=== PATIENT | female | born 1960 | race Caucasian/White ===

== ENCOUNTER → 2017-05-28 | Outpatient (CLI) | payer OTHER ==
--- NOTE | 2017-05-28 11:36 | RAD ---
MRI Thoracic Spine without contrast History: Back pain with bilateral leg radiculopathy greater on the left, shoulder numbness Technique: Multiplanar, multi sequential noncontrast MR imaging was performed of the thoracic spine. Contrast: None Comparison: None Findings: Thoracic vertebral body stature is adequate. AP alignment is mostly preserved, negligible anterior spondylolisthesis T2-3. Thoracic cord caliber is within limits without significant focal signal abnormality. There is no significant marrow edema. There are hemangiomas of T8, T5, T10, T12. There is negligible posterior protrusion T7-8. There is also negligible posterior protrusion T11-12. There is no significant thoracic spinal stenosis. Thoracic neural foramina are not significantly narrowed, mild posterior narrowing by facet on the right at T5-T6. There is kzdh-uo-hrhlmyat degenerative disc disease T11-12, minimally at other levels. As seen on the localizer, there are posterior bulges at C5-6 and C6-7. Impression: 1. There is no significant thoracic spinal stenosis or neural foramina compromise. There is tint-ii-nxxypxjo degenerative disc disease T11-12, minimally at other levels. Electronically signed by: Herrera Garcia MD (05/28/2017 11:32 AM) [id number]
--- NOTE | 2017-05-28 12:19 | RAD ---
MRI Lumbar Spine without contrast History: Back pain with bilateral leg radiculopathy greater on the left Technique: Multiplanar, multi sequential noncontrast MR imaging was performed of the lumbar spine. Contrast: None Comparison: December 24, 2007 Findings: Lumbar vertebral body stature is maintained. There is more advanced degenerative disc disease L5-S1 as seen previously. There is again minimal posterior subluxation L5 relative S1. Conus terminates at L1. There is degenerative endplate change L5-S1. There is no significant marrow edema. L2-L3: Spinal canal and neural foramina are adequate. L3-L4: Spinal canal and neural foramina are adequate. There is gtme-kh-cdszbmlb facet hypertrophic change and mild buckling of the ligamentum flavum. L4-L5: There is mild/moderate buckling of the ligamentum flavum and mild facet hypertrophic change. There is left posterior annular tear. Neural foramina and spinal canal are adequate. L5-S1: There is shallow extrusion extending below the intervertebral disc space as seen previously without significant impingement of the descending S1 nerve roots. Spinal canal is overall adequate. There is also shallow protrusion in the right neural foramen. There is jtwl-zo-caezptjj narrowing of the right neural foramen with contact exiting right L5 nerve root. Left neural foramen is overall adequate. Impression: 1. There is more advanced degenerative disc disease L5-S1. There is again minimal posterior subluxation L5 relative to S1. There is qpgq-tw-gtwbwddk narrowing of the right L5-S1 neural foramen in part by protrusion with contact exiting right L5 nerve root. Electronically signed by: Herrera Garcia MD (05/28/2017 12:16 PM) [facility]
== END | disposition home or self-care (01) ==
LOC: MRI 09:52
PROVIDERS: ATTEND Family Medicine
DX: M51.16 Intervertebral disc disorders with radiculopathy, lumbar region (principal); M51.17 Intervertebral disc disorders with radiculopathy, lumbosacral region; M51.34 Other intervertebral disc degeneration, thoracic region; R20.0 Anesthesia of skin
CPT/HCPCS: 72146; 72148

== ENCOUNTER → 2018-06-26 | Outpatient (CLI) | payer OTHER ==
--- NOTE | 2018-06-26 13:25 | RAD ---
MR of the left wrist Indication: Pain on the thumb side for 6 months. No known injury. Comparison: None are available Technique: Standard multiplanar sequences are obtained. FINDINGS: Artifact: Moderate motion degradation. Triangular fibrocartilage: Although somewhat limited by the motion, there appears to be a full-thickness tear of the central TFC disc measuring 3 mm wide. Distal radioulnar alignment: Intact, wrist is in extreme supination. Extensor carpi ulnaris tendon: Mild tendinosis signal and deformity, subluxed medially and flattened over the ulnar styloid. Other extensor compartments: Mild fluid surrounding the abductor pollicis longus and extensor pollicis brevis tendons. There is also mild intratendinous signal compatible with mild partial interstitial tearing. Flexor tendons: Intact Median nerve: Unremarkable Scapholunate ligament: The posterior band is poorly defined with increased signal. The anterior band and central aspect are also somewhat poorly defined. Lunotriquetral ligament: No evidence of a tear. Carpal bone alignment: Within normal limits. First carpometacarpal joint: Mild thickening and ill-definition of the anterior oblique ligament. Fluid: No significant effusion. Joints: No advanced DJD. Bones: Intraosseous cyst of the lunate. Soft tissues: Soft tissue edema about the lateral wrist. IMPRESSION: 1. First extensor compartment (de Quervain's) tenosynovitis. Mild partial interstitial tearing of the tendons. 2. Poor definition of the scapholunate ligament, consider sprain or partial tear. No definite through and through rupture. 3. Apparent full-thickness tear of the TFC disc. 4. Mild extensor carpi ulnaris tendinosis with medial subluxation. 5. Moderate motion degradation. Electronically signed by: William Sanchez MD (06/26/2018 1:21 PM) [facility]
== END | disposition home or self-care (01) ==
LOC: MRI 10:14
PROVIDERS: ATTEND Family Medicine
DX: S60.212A Contusion of left wrist, initial encounter (principal); S63.092A Other subluxation of left wrist and hand, initial encounter; M65.842 Other synovitis and tenosynovitis, left hand; Z90.710 Acquired absence of both cervix and uterus; X58.XXXA Exposure to other specified factors, initial encounter; Y93.89 Activity, other specified; Y92.89 Other specified places as the place of occurrence of the external cause; Y99.8 Other external cause status
CPT/HCPCS: 73221

== ENCOUNTER → 2019-10-27 | Outpatient (CLI) | payer OTHER ==
--- NOTE | 2019-10-27 18:52 | RAD ---
MRI study of the right knee without contrast Clinical indications: Patellar abnormality. TECHNIQUE: Noncontrast MRI sequences of the right knee were performed in all 3 planes. FINDINGS: The anterior and posterior cruciate ligaments are intact. The quadriceps and patellar tendons are intact. No articular surface tear of the medial or lateral meniscus is seen. Mild stress reaction bone marrow edema underneath the tibial spines is seen. No focal osteochondral abnormality of the medial or lateral tibiofemoral joint compartments is seen. No fracture or marrow infiltrative process is seen. There is mild lateral subluxation of the patella. The trochlear groove to tibial tubercle distance is 13 mm which is normal. There is moderate chondromalacia patellae. There is mild chondromalacia of the trochlea. There is a focus of stress reaction bone marrow edema of the lateral superior aspect of the trochlea just superior to the superior end of the articular cartilage. The medial and lateral retinacular ligaments are intact. Tiny nondistended Wray's cyst is seen. No significant knee joint effusion is seen. No loose body is seen. No muscle edema is evident. 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 Mild lateral subluxation of the patella. No ligament or tendon or meniscal tear. Electronically signed by: Abdiel Christianson MD (10/27/2019 3:55 PM) [facility]
== END | disposition home or self-care (01) ==
LOC: MRI 12:30
PROVIDERS: ATTEND Family Medicine
DX: S83.011A Lateral subluxation of right patella, initial encounter (principal); M71.21 Synovial cyst of popliteal space [Baker], right knee; X58.XXXA Exposure to other specified factors, initial encounter; Y93.89 Activity, other specified; Y92.89 Other specified places as the place of occurrence of the external cause; Y99.8 Other external cause status
CPT/HCPCS: 73721

== ENCOUNTER → 2021-01-19 | Day surgery (SDC) | payer OTHER ==
[~2021-01-19] MED LIST: AMLO5TAB4 PO; ASPI81TA59 PO; CRESTOR40 MG PO; ESOM20CA PO; IV RINGERS,LACTATED 1000ML 1,000 ML IV ONE; LEXAPRO20 MG PO; PROPOFOL 10 MG/ML (20ML) VIAL. IV ONE
[2021-01-19 10:04] VITALS: BP 122/77
--- NOTE | 2021-01-19 12:27 | HP ---
ADMIT DATE: 01/19/2021 HISTORY: A 60-year-old female with past medical history significant for hypertension as well as gastroesophageal reflux disease, hyperlipidemia, seen for a screening colon exam. Bowel habits are regular without diarrhea or constipation. There has been no melena or hematochezia. Weight and appetite are stable. FAMILY HISTORY: Noncontributory. She has, otherwise, no additional complaints. PAST MEDICAL HISTORY: Hypertension, hyperlipidemia, gastroesophageal reflux disease. ALLERGIES: ATORVASTATIN. MEDICATIONS: Include Crestor, omeprazole, Lexapro, aspirin and amlodipine. SOCIAL HISTORY: She is a nonsmoker, social drinker. PAST SURGICAL HISTORY: Significant for and hysterectomy. REVIEW OF SYSTEMS: Per records. PHYSICAL EXAMINATION: GENERAL: Reveals a well-nourished, well-developed female, who is alert, cooperative, in no acute distress. VITAL SIGNS: Her temperature is 97.9, pulse 60, respiratory rate 20, pulse ox saturation 97%. LUNGS: Clear. CARDIOVASCULAR: Reveals an S1, S2, without S3, S4 or appreciable murmur. ABDOMEN: Reveals a soft abdomen, normal bowel sounds. No appreciable hepatosplenomegaly. EXTREMITIES: Reveals no cyanosis, clubbing or edema. IMPRESSION: Colorectal screening. Risks and benefits of procedure, including risk of hemorrhage and perforation were discussed. The patient is willing to proceed at this time. I thank Dr. Adrian for allowing us to consult and allowing me to participate in the patient's care. ANA/PATRICIO/KELIN DR: Erin TID: [id number] CC: ANI ADRIAN MD
--- NOTE | 2021-01-22 18:09 | PATHOLOGY ---
[facility] Accession Number: [id number] . 01 Material submitted: . colon - ASCENDING COLON POLYP BIOPSY. Modifiers: ascending . 01 Clinical history: . CRC SCREENING COLONOSCOPY . 02 Diagnosis: Colon biopsies, ascending colon polyp: - Hyperplastic polyp. . ([facility]:mml; 01/22/2021) [facility] 01/22/2021 1605 Local . 02 Comment: There are no adenomatous changes or evidence of malignancy. . ([facility]:mml; 01/22/2021) . 02 Electronically signed: . Bakari Ramirez MD, Pathologist NPI- [id number] . 01 Gross description: . Received in formalin labeled "Sudheerge, Jessy, ascending colon polyp biopsy" are 2 fragments of patel-brown soft tissue measuring 0.5 x 0.3 x 0.2 cm and 0.4 x 0.4 x 0.3 cm. The specimen is submitted entirely in A1. ([facility]; 01/20/2021) GZA/GZA 01/20/2021 0946 Local . 02 Pathologist provided ICD-10: K63.5 . 02 CPT . 266095 Specimen Comment: A courtesy copy of this report has been sent to [phone] Specimen Comment: Report sent to Performed at: 01 [facility] [address], [place] [id number] MD Calvin Savage MD Phone: [phone] Performed at: 02 [facility] [address] [place], [place] [id number] MD Bakari Ramirez MD Phone: [phone]
== END | disposition home or self-care (01) ==
LOC: ENDOS 08:12
PROVIDERS: ATTEND Internal Medicine Gastroenterology
DX: Z12.11 Encounter for screening for malignant neoplasm of colon (principal); K64.0 First degree hemorrhoids; K63.5 Polyp of colon; K63.89 Other specified diseases of intestine; K21.9 Gastro-esophageal reflux disease without esophagitis; I10 Essential (primary) hypertension; E78.00 Pure hypercholesterolemia, unspecified; M19.90 Unspecified osteoarthritis, unspecified site; Z20.822 Contact with and (suspected) exposure to COVID-19; Z79.82 Long term (current) use of aspirin; Z79.899 Other long term (current) drug therapy; Z90.710 Acquired absence of both cervix and uterus; Z98.890 Other specified postprocedural states; Z88.8 Allergy status to other drugs, medicaments and biological substances
CPT/HCPCS: 45380; 87426; 88305; J2704